=== PATIENT | male | born 1970 | race Caucasian/White ===

== ENCOUNTER → 2019-03-29 15:36 | Outpatient (BNVA) | payer MEDICAID, SELFPAY | PROVIDERS: Family Provider Nurse Practitioner Family; PCP Nurse Practitioner Family; Visit Provider Specialist | DX: G43.711 Chronic migraine without aura, intractable, with status migrainosus (principal); M79.7 Fibromyalgia | CPT/HCPCS: 99214 ==

== ENCOUNTER → 2019-05-03 15:48 | Outpatient (BNVA) | payer MEDICAID, SELFPAY | PROVIDERS: Family Provider Nurse Practitioner Family; PCP Nurse Practitioner Family; Visit Provider Specialist | DX: M17.0 Bilateral primary osteoarthritis of knee (principal) | CPT/HCPCS: 73560; 73565 ==

== ENCOUNTER → 2019-06-20 15:01 | Outpatient (BNVA) | payer MEDICAID, SELFPAY | PROVIDERS: Family Provider Nurse Practitioner Family; PCP Nurse Practitioner Family; Visit Provider Specialist | DX: G43.711 Chronic migraine without aura, intractable, with status migrainosus (principal) | CPT/HCPCS: 96116; 99213 ==

== ENCOUNTER → 2019-09-04 09:33 | Outpatient (BNVA) | payer MEDICAID, SELFPAY | PROVIDERS: Family Provider Nurse Practitioner Family; PCP Nurse Practitioner Family; Referring Provider Family Medicine; Visit Provider Anesthesiology Pain Medicine | DX: M54.2 Cervicalgia (principal); G43.711 Chronic migraine without aura, intractable, with status migrainosus; M47.816 Spondylosis without myelopathy or radiculopathy, lumbar region; M17.0 Bilateral primary osteoarthritis of knee; M79.18 Myalgia, other site; Z79.891 Long term (current) use of opiate analgesic | CPT/HCPCS: 99204 ==

== ENCOUNTER 2022-11-23 08:59 | Outpatient (CLI) | payer MEDICAID, SELFPAY ==
--- NOTE | 2022-11-23 09:00 | USCV_ITS ---
Brady Velarde Age: 52 Gender: M : 1970 Exam Date: 11/23/2022 09:18 Ordering Phys: Na Mcmahon Technologist: Sosa Mo Exam Location: [facility] [place]: pre syncope BP: 154 / 89 HR: 74 Rhythm: Sinus Technical Quality: Adequate MEASUREMENTS (Male / Female) Normal Values 2D ECHO LV Diastolic Diameter PLAX 4.9 cm 4.2 - 5.9 / 3.9 - 5.3 cm LV Systolic Diameter PLAX 1.9 cm IVS Diastolic Thickness 2.1 cm 0.6 - 1.0 / 0.6 - 0.9 cm IVS Systolic Thickness 1.9 cm LVPW Diastolic Thickness 1.1 cm 0.6 - 1.0 / 0.6 - 0.9 cm LVPW Systolic Thickness 1.7 cm LVOT Diameter 2.0 cm LV Ejection Fraction 2D Teich 90.0 % LV Ejection Fraction MOD 2C 71.1 % LV Ejection Fraction 2C AL 72.0 % LA Diameter 3.2 cm LA Width 2.6 cm LA Height 4.5 cm RA Width 2.6 cm RA Height 4.5 cm Aorta at Sinotubular Diameter 3.9 cm IVC Diameter 1.3 cm M-MODE Aortic Annulus Diameter 3.8 cm LA Ao Ratio MM 0.9 MV E Point Septal Separation 0.7 cm DOPPLER AV Peak Velocity 139.0 cm/s LVOT Peak Velocity 112.0 cm/s AV Area Cont Eq vti 2.4 cm squared AV Area Cont Eq pk 2.5 cm squared MV Area PHT 2.7 cm squared Mitral E to A Ratio 0.8 MV E' Velocity 31.5 cm/s Mitral E to MV E' Ratio 8.3 Mitral E to LV E' Lateral Ratio 7.1 Mitral E to LV E' Septal Ratio 10.2 TR Peak Velocity 88.3 cm/s TR Peak Gradient 3.1 mmHg Right Atrial Pressure 5.0 mmHg Pulmonary Artery Systolic Pressu 8.1 mmHg PV Peak Velocity 85.0 cm/s RV Acceleration Time 0.1 s RV Ejection Time 0.3 s RV AcT/ET 0.5 FINDINGS Left Ventricle Normal left ventricular cavity size. Normal left ventricular systolic function. Left ventricular ejection fraction is estimated at 55 %. Grossly no regional wall motion abnormalities. Normal diastolic function. Right Ventricle Normal right ventricular size and systolic function. Right ventricular systolic pressure 8.1 mmHg. Right Atrium Normal right atrial size. Left Atrium Normal left atrial size. Mitral Valve Structurally normal mitral valve. No mitral valve stenosis. No mitral valve regurgitation. Aortic Valve Structurally normal trileaflet aortic valve. No aortic valve stenosis. No aortic valve regurgitation. Tricuspid Valve Structurally normal tricuspid valve. No tricuspid valve stenosis. Trace tricuspid valve regurgitation. Pulmonic Valve Pulmonic valve not well visualized. No pulmonary valve stenosis. Pericardium No pericardial effusion. Aorta Normal size aortic root and dilated proximal ascending aorta measured at 39 mm. IVC Normal IVC dimension with >50% respiratory change of the inferior vena cava. CONCLUSIONS 1. Normal left ventricular cavity size. Normal left ventricular systolic function. Left ventricular ejection fraction is estimated at 55 %. Grossly no regional wall motion abnormalities. Normal diastolic function. 2. Dilated proximal ascending aorta measured at 39 mm. 3. No prior similar studies to compare. Migdalia Lerma MD (Electronically Signed) Final Date: 24 November 2022 17:18 S
== END 2022-11-23 09:00 | disposition home or self-care (01) ==
LOC: RAD 09:00
PROVIDERS: Family Provider Nurse Practitioner Family; PCP Nurse Practitioner Family; Visit Provider Nurse Practitioner Family
DX: R55 Syncope and collapse (principal); I77.810 Thoracic aortic ectasia
CPT/HCPCS: 93306

== ENCOUNTER → 2022-12-21 09:56 | Outpatient (BNVA) | payer MEDICAID, SELFPAY | PROVIDERS: Family Provider Nurse Practitioner Family; PCP Nurse Practitioner Family; Referring Provider Nurse Practitioner Family; Visit Provider Internal Medicine Cardiovascular Disease | DX: E66.01 Morbid (severe) obesity due to excess calories (principal); Z68.42 Body mass index [BMI] 45.0-49.9, adult; G31.84 Mild cognitive impairment of uncertain or unknown etiology; R42 Dizziness and giddiness | CPT/HCPCS: 99203 ==

== ENCOUNTER → 2023-03-17 09:26 | Outpatient (BNVA) | payer MEDICAID, SELFPAY | PROVIDERS: Family Provider Nurse Practitioner Family; PCP Family Medicine; Visit Provider Anesthesiology Pain Medicine | DX: G43.711 Chronic migraine without aura, intractable, with status migrainosus; M48.10 Ankylosing hyperostosis [Forestier], site unspecified; M47.816 Spondylosis without myelopathy or radiculopathy, lumbar region | CPT/HCPCS: 99205 ==

== ENCOUNTER → 2023-03-24 13:44 | Outpatient (BNVA) | payer MEDICAID, SELFPAY | PROVIDERS: Family Provider Nurse Practitioner Family; PCP Family Medicine; Visit Provider Anesthesiology Pain Medicine | DX: M47.816 Spondylosis without myelopathy or radiculopathy, lumbar region (principal) | CPT/HCPCS: 64493; 64494; 64495; J3490 ==

== ENCOUNTER → 2023-03-29 13:29 | Outpatient (BNVA) | payer MEDICAID, SELFPAY | PROVIDERS: Family Provider Nurse Practitioner Family; PCP Family Medicine; Visit Provider Anesthesiology Pain Medicine | DX: M47.816 Spondylosis without myelopathy or radiculopathy, lumbar region (principal) | CPT/HCPCS: 64493; 64494; 64495; J3490 ==

== ENCOUNTER → 2023-04-13 11:24 | Outpatient (BNVA) | payer MEDICAID, SELFPAY | PROVIDERS: Family Provider Nurse Practitioner Family; PCP Family Medicine; Visit Provider Anesthesiology Pain Medicine | DX: G43.711 Chronic migraine without aura, intractable, with status migrainosus; M48.10 Ankylosing hyperostosis [Forestier], site unspecified; M47.816 Spondylosis without myelopathy or radiculopathy, lumbar region | CPT/HCPCS: 99214 ==

== ENCOUNTER → 2023-04-28 13:13 | Outpatient (BNVA) | payer MEDICAID, SELFPAY | PROVIDERS: Family Provider Nurse Practitioner Family; PCP Family Medicine; Visit Provider Anesthesiology Pain Medicine | DX: M47.816 Spondylosis without myelopathy or radiculopathy, lumbar region (principal) | CPT/HCPCS: 64635; 64636; J1030 ==

== ENCOUNTER → 2023-05-20 09:58 | Outpatient (BNVA) | payer MEDICAID, SELFPAY | PROVIDERS: Family Provider Nurse Practitioner Family; PCP Family Medicine; Visit Provider Anesthesiology Pain Medicine | DX: M47.816 Spondylosis without myelopathy or radiculopathy, lumbar region (principal); G43.711 Chronic migraine without aura, intractable, with status migrainosus; M48.10 Ankylosing hyperostosis [Forestier], site unspecified | CPT/HCPCS: 99214 ==